=== PATIENT | female | born 1990 | race Caucasian/White ===

== ENCOUNTER 2018-12-07 21:01 | Emergency (ER) | payer MEDICAID ==
[2018-12-07] MEDS: KETOROLAC 30 MG INJ IM (23:15)
[2018-12-07 23:27] LABS: ADD UMIC NO; UR ASCORBIC ACID NEGATIVE (NEGATIVE); UR BILIRUBIN (Dip) NEGATIVE (NEGATIVE); UR BLOOD (Dip) NEGATIVE (NEGATIVE); UR CLARITY SLIGHTLY CLOUDY (CLEAR); UR COLOR YELLOW (YELLOW); UR GLUCOSE (Dip) NEGATIVE (NEGATIVE); UR KETONES (Dip) NEGATIVE (NEGATIVE); UR LEUKOCYTE ESTERASE (Dip) NEGATIVE Leu/ul (NEGATIVE); UR MUCUS FEW /HPF (NONE SEEN); UR NITRITE (Dip) NEGATIVE (NEGATIVE); UR RBC 1 /HPF (0-5); UR SPECIFIC GRAVITY (Dip) 1.025 (1.003-1.030); UR SQUAMOUS EPITHELIAL CELL FEW /HPF (FEW); UR TOTAL PROTEIN (Dip) NEGATIVE (NEGATIVE); UR UROBILINOGEN (Dip) NEGATIVE (NEGATIVE); UR WBC 4 /HPF (0-5)
== END 2018-12-08 00:01 | disposition home or self-care (01) ==
LOC: FTE 12-08 00:01
DX: M54.5 Low back pain (principal)
CPT/HCPCS: 81001; 81003; 81025; 84703; 96372; 99284-25

== ENCOUNTER 2018-12-08 14:23 | Emergency (ER) | payer MEDICAID ==
[2018-12-08] MEDS: MELOXICAM 15 MG TAB PO (15:29)
== END 2018-12-08 16:03 | disposition home or self-care (01) ==
LOC: FTE 14:23
DX: M54.5 Low back pain (principal)
CPT/HCPCS: 72100; 99283-25